=== PATIENT | female | born 1995 | race Caucasian/White ===

== ENCOUNTER 2018-05-09 17:07 | Emergency (ER) | payer MEDICAID ==
--- NOTE | 2018-05-09 18:42 | EDM.PDOC ---
ED HPI GENERAL MEDICAL PROBLEM - General Chief Complaint: Back Pain or Injury Stated Complaint: PAIN IN BACK Time Seen by Provider: 05/09/18 18:28 Source of Information: Reports: Patient History Limitations: Reports: No Limitations - History of Present Illness INITIAL COMMENTS - FREE TEXT/NARRATIVE: HISTORY AND PHYSICAL: History of present illness: Patient is a 22-year-old female who presents to the ED today with concerns of low back pain. Patient states that she's had this for about 3 months but over the past couple days the pain has drastically worsened. She rates the pain currently a 6-7 out of 10. She describes it as feeling as if someone is "stabbing her ". She denies any trauma or injury to the area. She states she has also noticed urinary frequency but no pain with urination or blood in urine. Has been able to eat and drink per normal. Patient states the pain is worse if she presses on the area. Patient is sexually active without using control. Patient states the pain does not radiate anywhere. She states she is not able to feel any deformities. Patient denies fever, chills, nausea, vomiting, shortness of breath, abdominal pain, vaginal discharge, pelvic pain, diarrhea, or all other GI, , respiratory , or cardiovascular complaints. 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 She denies any other health history. Review of systems: As per history of present illness and below otherwise all systems reviewed and negative. Past medical history: As per history of present illness and as reviewed below otherwise noncontributory. Surgical history: As per history of present illness and as reviewed below otherwise noncontributory. Social history: See social history for further information Family history: As per history of present illness and as reviewed below otherwise noncontributory. Physical exam: General: Patient is alert, oriented, and in no acute distress. She is sitting comfortably on exam table. HEENT: Atraumatic, normocephalic, pupils equal and reactive bilaterally, negative for conjunctival pallor or scleral icterus, mucous membranes moist, TMs normal bilaterally, throat clear, neck supple, nontender, trachea midline. No drooling or trismus noted. No meningeal signs. No hot potato voice noted. Lungs: Clear to auscultation, breath sounds equal bilaterally, chest nontender. Heart: S1S2, regular rate and rhythm without overt murmur Abdomen: Obese, soft, nondistended, nontender. Negative for masses or hepatosplenomegaly. Negative for costovertebral tenderness. Pelvis: Stable nontender. Genitourinary: Deferred. Rectal: Deferred. Skin: Intact, warm, dry. No lesions or rashes noted. Extremities/musculoskeletal: She does have pinpoint pain to palpation of the right SI joint and surrounding muscle bodies. She has full range of motion of cervical, thoracic, lumbar, hips, and knees with intact strength. Otherwise, atraumatic, negative for cords or calf pain. Neurovascular unremarkable. Neuro: Awake, alert, oriented. Cranial nerves II through XII unremarkable. Cerebellum unremarkable. Motor and sensory unremarkable throughout. Exam nonfocal. Notes: On exam, patient does have pinpoint tenderness to the SI joint and surrounding musculature. I will do a UA, hCG, and back x-ray to assess for any potential underlying injury. Xray shows no acute findings. Labs and imaging are unremarkable. Will treat according to musculoskeletal with anti-inflammatories. Supportive care measures were reviewed and discussed. Voices understanding and is agreeable to plan of care. Denies any further questions or concerns at this time. Diagnostics: UA, urine hCG, lumbar x-ray Therapeutics: Toradol Prescription: Flexeril (#15), voltaren Impression: 1. Low back pain, nonspecific Plan: 1. You can use Flexeril and Voltaren for back pain. You can take Flexeril for moderate to severe pain but caution with this medication as it can cause drowsiness so caution outside the house. You do not look in additional 2. You can use Tylenol and ibuprofen as needed for pain. You can alternate ice and heat 15 minutes on 15 minutes off for the next 1-2 days. 3. Follow-up with your primary care provider for definitive treatment. 4. Return to the ED as needed and as discussed. Definitive disposition and diagnosis as appropriate pending reevaluation and review of above. Lower Back Pain Score (Numeric/FACES): 6 - Related Data Allergies Allergy/AdvReac Type Severity Reaction Status Date / Time amoxicillin trihydrate Allergy Rash Verified 05/09/18 17:20 [From Augmentin] potassium clavulanate Allergy Rash Verified 05/09/18 17:20 [From Augmentin] Home Meds: Home Meds . 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: Musculoskeletal History: Reports: Other (See Below) Other Musculoskeletal History: BOXER,right hand fracture Neurological History: Reports: None Psychiatric History: Reports: Depression Endocrine/Metabolic History: Reports: None Hematologic History: Reports: None Immunologic History: Reports: None Oncologic (Cancer) History: Reports: None Dermatologic History: Reports: None - Infectious Disease History Infectious Disease History: Reports: Chicken Pox - Past Surgical History Head Surgeries/Procedures: Reports: None HEENT Surgical History: Reports: Tonsillectomy Social & Family History - Family History Family Medical History: Noncontributory Cardiac: Reports: Heart Murmur, Heart Valve Replacement Respiratory: Reports: COPD Neurological: Reports: Seizure Oncologic: Reports: Cervix, Lung - Tobacco Use Smoking Status *Q: Former Smoker Years of Tobacco use: 7 Used Tobacco, but Quit: Yes Month/Year Tobacco Last Used: 4 weeks - Caffeine Use Caffeine Use: Reports: Coffee - Recreational Drug Use Recreational Drug Use: No ED ROS GENERAL - Review of Systems Review Of Systems: ROS reveals no pertinent complaints other than HPI. ED EXAM,LOWER BACK PAIN/INJURY - Physical Exam Exam: See Below (See dictation) Course - Vital Signs Last Recorded V/S: Last Vital Signs Temp 98.5 F 05/09/18 17:21 Pulse 86 05/09/18 18:57 Resp 18 05/09/18 18:57 BP 114/64 05/09/18 18:57 Pulse Ox 97 05/09/18 18:57 - Orders/Labs/Meds Orders: Active Orders 24 hr Category Date Time Status Lumbar Spine 2 or 3V [CR] Stat Exams 05/09/18 18:32 Taken CULTURE URINE [RM] Stat Lab 05/09/18 18:55 Received Labs: Laboratory Tests 05/09/18 05/09/18 Range/Units 18:55 18:55 Urine Color YELLOW Urine Appearance CLEAR Urine pH 6.5 (5.0-8.0) Ur Specific [place] <= 1.005 (1.001-1.035) Urine Protein NEGATIVE (NEGATIVE) mg/dL Urine Glucose (UA) NEGATIVE (NEGATIVE) mg/dL Urine Ketones NEGATIVE (NEGATIVE) mg/dL Urine Occult Blood NEGATIVE (NEGATIVE) Urine Nitrite NEGATIVE (NEGATIVE) Urine Bilirubin NEGATIVE (NEGATIVE) Urine Urobilinogen 0.2 (<2.0) EU/dL Ur Leukocyte Esterase TRACE H (NEGATIVE) Urine RBC 0-1 (0-2/HPF) Urine WBC 0-2 (0-5/HPF) Ur Epithelial Cells FEW (NONE-FEW) Urine Bacteria FEW (NEGATIVE) Urine HCG, Qual NEGATIVE (NEGATIVE) Meds: Medications Discontinued Medications Generic Name Dose Route Start Last Admin Trade Name Freq PRN Reason Stop Dose Admin Ketorolac Tromethamine 60 mg 05/09/18 19:07 05/09/18 19:19 Toradol IM 05/09/18 19:08 Not Given ONETIME ONE Departure - Departure Time of Disposition: 20:05 Disposition: Home, Self-Care 01 Clinical Impression: Back pain Qualifiers: Back pain location: low back pain Chronicity: acute Back pain laterality: right Sciatica presence: without sciatica Qualified Code(s): M54.5 - Low back pain - Discharge Information Instructions: Back Exercises, [id number], Back Pain, Adult, [id number] Referrals: PCP,Unknown [Primary Care Provider] - Forms: ED Department Discharge Additional Instructions: The following information is given to patients seen in the emergency department who are being discharged to home. This information is to outline your options for follow-up care. We provide all patients seen in our emergency department with a follow-up referral. The need for follow-up, as well as the timing and circumstances, are variable depending upon the specifics of your emergency department visit. If you don't have a primary care physician on staff, we will provide you with a referral. We always advise you to contact your personal physician following an emergency department visit to inform them of the circumstance of the visit and for follow-up with them and/or the need for any referrals to a consulting specialist. The emergency department will also refer you to a specialist when appropriate. This referral assures that you have the opportunity for follow-up care with a specialist. All of these measure are taken in an effort to provide you with optimal care, which includes your follow-up. Under all circumstances we always encourage you to contact your private physician who remains a resource for coordinating your care. When calling for follow-up care, please make the office aware that this follow-up is from your recent emergency room visit. If for any reason you are refused follow-up, please contact the [facility] Emergency Department at and asked to speak to the emergency department charge nurse. [facility] [address] [place] [address] [facility] [address] [place] [id number] 1. You can use Flexeril and Voltaren for back pain. You can take Flexeril for moderate to severe pain but caution with this medication as it can cause drowsiness so caution outside the house. 2. You can use Tylenol and ibuprofen as needed for pain. You can alternate ice and heat 15 minutes on 15 minutes off for the next 1-2 days. 3. Follow-up with your primary care provider for definitive treatment. 4. Return to the ED as needed and as discussed.
[2018-05-09] MEDS: Ketorolac 60 MG/2 ML SDV IM ONE ×2 (19:13→19:19)
[2018-05-09 20:17] VITALS: BP 120/78
--- NOTE | 2018-05-09 20:31 | CR ---
INDICATION: Pain x3 months, no history of trauma TECHNIQUE: Lumbar spine 4 view. COMPARISON: None FINDINGS: Bones: Alignment is normal. No fractures or significant bone lesions. Joints: Disc spaces and facets are unremarkable. Soft tissues: Unremarkable. IMPRESSION: Unremarkable lumbar spine. Dictated by Perry Griffith MD @ 05/09/2018 8:30:29 PM Dictated by: Perry Griffith MD @ 05/09/2018 20:30:34 (Electronically Signed)
== END 2018-05-09 20:14 | disposition home or self-care (01) ==
LOC: MW.ED 17:07
DX: M54.5 Low back pain (principal); Z88.1 Allergy status to other antibiotic agents; Z98.890 Other specified postprocedural states
CPT/HCPCS: 72100; 72100-26; 81001; 81025; 87086; 99283; 99284; J1885

== ENCOUNTER 2018-06-05 18:38 | Emergency (ER) | payer MEDICAID ==
--- NOTE | 2018-06-05 18:49 | EDM.PDOC ---
ED HPI GENERAL MEDICAL PROBLEM - General Chief Complaint: Lower Extremity Injury/Pain Stated Complaint: INJURED FOOT Time Seen by Provider: 06/05/18 18:44 Source of Information: Reports: Patient History Limitations: Reports: No Limitations - History of Present Illness INITIAL COMMENTS - FREE TEXT/NARRATIVE: HISTORY AND PHYSICAL: History of present illness: Patient is a 22-year-old female who presents to the emergency room with concerns of right foot pain. She states 2 or 3 days ago she had dropped an oxygen tank on her foot which resulted in soft tissue swelling and bruising. She reports multiple people were concerned that she fractured her foot does she does have bruising and pain with palpation to the anterior foot. She denies any previous injury, trauma or surgeries of the affected extremity. Denies any numbness or tingling of the affected extremity. Denies any fever, chills, chest pain, shortness of breath or cough. Denies any abdominal pain, nausea, vomiting, diarrhea, constipation or dysuria. Has been eating and drinking appropriately. Denies any chance of . Review of systems: As per history of present illness and below otherwise all systems reviewed and negative. Past medical history: As per history of present illness and as reviewed below otherwise noncontributory. Surgical history: As per history of present illness and as reviewed below otherwise noncontributory. Social history: See social history for further information Family history: As per history of present illness and as reviewed below otherwise noncontributory. Physical exam: General: Well-developed and well-nourished 22-year-old female. Alert and oriented. Nontoxic appearing and in no acute distress. HEENT: Atraumatic, normocephalic, pupils equal and reactive bilaterally, negative for conjunctival pallor or scleral icterus, mucous membranes moist, TMs normal bilaterally, throat clear, neck supple, nontender, trachea midline. No drooling or trismus noted. No meningeal signs. No hot potato voice noted. Lungs: Clear to auscultation, breath sounds equal bilaterally, chest nontender. Heart: S1S2, regular rate and rhythm without overt murmur Abdomen: Soft, nondistended, nontender. Negative for masses or hepatosplenomegaly. Negative for costovertebral tenderness. Pelvis: Stable nontender. Genitourinary: Deferred. Rectal: Deferred. Skin: Healing bruising noted to the base of the toes on the anterior right foot. Otherwise skin is intact, warm, dry. No lesions or rashes noted. Extremities: Pain with palpation to the anterior right foot along the base of toes 2 through 5. Strong pedal and pretibial pulse. She is weightbearing and fully ambulatory. She is negative for cords or calf pain. Neurovascular unremarkable. Neuro: Awake, alert, oriented. Cranial nerves II through XII unremarkable. Cerebellum unremarkable. Motor and sensory unremarkable throughout. Exam nonfocal. Notes: X-ray shows no acute findings. Crutches were offered, patient declines. Supportive care measures were reviewed and discussed. Voices understanding and is agreeable to plan of care. Denies any further questions or concerns at this time. Diagnostics: Foot x-ray Therapeutics: Declines Prescription: Declines Impression: Right foot contusion Plan: 1. Rest, ice, elevate the affected extremity. 2. Tylenol and/or Ibuprofen as needed for pain management. 3. Follow up with the Orthopedic provider as we discussed. Return to the ED as needed and as discussed. Definitive disposition and diagnosis as appropriate pending reevaluation and review of above. right big toe Pain Score (Numeric/FACES): 5 - Related Data Allergies Allergy/AdvReac Type Severity Reaction Status Date / Time amoxicillin trihydrate Allergy Rash Verified 06/05/18 19:39 [From Augmentin] potassium clavulanate Allergy Rash Verified 06/05/18 19:39 [From Augmentin] Home Meds: Home Meds . 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: Musculoskeletal History: Reports: Other (See Below) Other Musculoskeletal History: BOXER,right hand fracture Neurological History: Reports: None Psychiatric History: Reports: Depression Endocrine/Metabolic History: Reports: None Hematologic History: Reports: None Immunologic History: Reports: None Oncologic (Cancer) History: Reports: None Dermatologic History: Reports: None - Infectious Disease History Infectious Disease History: Reports: Chicken Pox - Past Surgical History Head Surgeries/Procedures: Reports: None HEENT Surgical History: Reports: Tonsillectomy Social & Family History - Family History Family Medical History: Noncontributory Cardiac: Reports: Heart Murmur, Heart Valve Replacement Respiratory: Reports: COPD Neurological: Reports: Seizure Oncologic: Reports: Cervix, Lung - Caffeine Use Caffeine Use: Reports: Coffee Review of Systems - Review of Systems Review Of Systems: ROS reveals no pertinent complaints other than HPI. ED EXAM, GENERAL - Physical Exam Exam: See Below (See dictation) Course - Vital Signs Last Recorded V/S: Last Vital Signs Temp 98.5 F 06/05/18 18:50 Pulse 99 06/05/18 18:50 Resp 18 06/05/18 18:50 BP 120/66 06/05/18 18:50 Pulse Ox 96 06/05/18 18:50 Departure - Departure Time of Disposition: 20:10 Disposition: Home, Self-Care 01 Clinical Impression: Contusion of right foot Qualifiers: Encounter type: initial encounter Qualified Code(s): S90.31XA - Contusion of right foot, initial encounter - Discharge Information Instructions: Contusion, [id number]-Iugh Referrals: PCP,Unknown [Primary Care Provider] - Forms: ED Department Discharge Additional Instructions: The following information is given to patients seen in the emergency department who are being discharged to home. This information is to outline your options for follow-up care. We provide all patients seen in our emergency department with a follow-up referral. The need for follow-up, as well as the timing and circumstances, are variable depending upon the specifics of your emergency department visit. If you don't have a primary care physician on staff, we will provide you with a referral. We always advise you to contact your personal physician following an emergency department visit to inform them of the circumstance of the visit and for follow-up with them and/or the need for any referrals to a consulting specialist. The emergency department will also refer you to a specialist when appropriate. This referral assures that you have the opportunity for follow-up care with a specialist. All of these measure are taken in an effort to provide you with optimal care, which includes your follow-up. Under all circumstances we always encourage you to contact your private physician who remains a resource for coordinating your care. When calling for follow-up care, please make the office aware that this follow-up is from your recent emergency room visit. If for any reason you are refused follow-up, please contact the [facility] Emergency Department at and asked to speak to the emergency department charge nurse. [facility] [address], [place] [address] [address] [facility] - [facility] Professional Building [address], [address] [place] [address] 1. Rest, ice, elevate the affected extremity. 2. Tylenol and/or Ibuprofen as needed for pain management. 3. Follow up with the Orthopedic provider as we discussed. Return to the ED as needed and as discussed.
[2018-06-05 19:29] VITALS: BP 120/66
--- NOTE | 2018-06-05 20:37 | CR ---
Indication tank on foot Technique: Two views of the right foot Findings: Normal alignment. No acute fractures seen. Mild diffuse soft tissue swelling. No acute osseous abnormalities. Dictated by Tereza Brown MD @ Jun 05 2018 8:33PM Signed by Dr. Tereza Brown @ Jun 05 2018 8:36PM
== END 2018-06-05 21:09 | disposition home or self-care (01) ==
LOC: MW.ED 18:38
DX: S90.31XA Contusion of right foot, initial encounter (principal); Z88.1 Allergy status to other antibiotic agents; Z88.8 Allergy status to other drugs, medicaments and biological substances; W20.8XXA Other cause of strike by thrown, projected or falling object, initial encounter
CPT/HCPCS: 73620-26-RT; 73620-RT; 99283; 99283-25

== ENCOUNTER 2022-08-03 08:39 | Emergency (ER) | payer MEDICAID ==
[2022-08-03 08:57] VITALS: BP 146/77; PULSE 71
== END 2022-08-03 10:13 | disposition home or self-care (01) ==
LOC: MW.ED 08:39
DX: J02.9 Acute pharyngitis, unspecified (principal); Z88.0 Allergy status to penicillin; Z88.8 Allergy status to other drugs, medicaments and biological substances
CPT/HCPCS: 87070; 87880-QW; 99283

== ENCOUNTER 2023-04-11 13:35 | Emergency (ER) | payer MEDICAID ==
[2023-04-11 14:22] LABS: BASOPHILS ABSOLUTE AUTO 0.02 K/uL (0.00-0.20); BASOPHILS PERCENT AUTO 0.3 % (0.0-1.0); EOSINOPHILS ABSOLUTE AUTO 0.06 K/uL (0.00-0.45); EOSINOPHILS PERCENT AUTO 0.9 % (0.0-6.0); HEMATOCRIT 42.4 % (37.0-47.0); HEMOGLOBIN 14.3 g/dL (12.0-16.0); IMMATURE GRAN ABSOLUTE AUTO 0.01 K/uL (0.00-0.05); IMMATURE GRAN PERCENT AUTO 0.2 % (0.0-0.4); LYMPHOCYTES ABSOLUTE AUTO 2.85 K/uL (1.00-4.80); LYMPHOCYTES PERCENT AUTO 44.3 % (24.0-44.0); MEAN CORPUSCULAR HEMOGLOBIN 29.4 pg (28.0-32.0); MEAN CORPUSCULAR HGB CONC 33.7 g/dL (32.0-36.0); MEAN CORPUSCULAR VOLUME 87.1 fL (83.0-99.0); MEAN PLATELET VOLUME 9.3 fL (9.4-12.3); MONOCYTES PERCENT AUTO 7.8 % (0.0-8.0); NEUTROPHILS ABSOLUTE AUTO 2.99 K/uL (1.80-7.70); NEUTROPHILS PERCENT AUTO 46.5 % (41.0-71.0); PLATELET COUNT,PLT 314 K/uL (150-400); RED BLOOD CELL COUNT 4.87 M/uL (4.10-5.30); WHITE BLOOD CELL COUNT,WBC 6.43 K/uL (3.9-11.3)
[2023-04-11 14:37] LABS: CALCIUM 9.2 mg/dL (8.5-10.1); CARBON DIOXIDE,CO2 27.7 mmol/L (21.0-32.0); CREATININE 0.7 mg/dL (0.6-1.0); EST CRCL DRUG DOSING (CG) 85.94 mL/min; POTASSIUM,K 3.8 mmol/L (3.5-5.1)
[2023-04-11 15:11] VITALS: BP 124/66; PULSE 63
== END 2023-04-11 15:10 | disposition home or self-care (01) ==
LOC: MW.ED 13:35
DX: K62.5 Hemorrhage of anus and rectum (principal); J45.909 Unspecified asthma, uncomplicated; Z79.899 Other long term (current) drug therapy; Z88.0 Allergy status to penicillin; Z88.1 Allergy status to other antibiotic agents
CPT/HCPCS: 36415; 80048; 85025; 99283